=== PATIENT | male | born 1945 | race Caucasian/White ===

== ENCOUNTER 2018-11-01 12:03 | Emergency (ER) | payer MEDICARE ==
[~2018-11-01 12:03] MED LIST: ACE3 PO; ASPI-715 PO; ATR10 PO; CEP500 PO; DUT0.5 PO; FLOMAX; HYDR-3250 PO; KET10 PO; LOR5/325 PO; NAPR-1043 PO; ONDA-153 SL; ONDA4TAB PO; ONDA8TAB94 PO; PRO25 PO; TRILI135PT PO
[2018-11-01 12:22] VITALS: BP 134/79
[2018-11-01] MEDS ORDERED: TAMS0.4C70 PO (12:27)
[2018-11-01] MEDS ORDERED: ATOR20TA22 PO (12:27)
[2018-11-01] MEDS ORDERED: FINA5TAB67 PO (12:27)
[2018-11-01] MEDS ORDERED: APIX5TAB PO (12:27)
[2018-11-01] MEDS ORDERED: METO25TA23 PO (12:29)
[2018-11-01] MEDS ORDERED: DIPHTH/TETANUS/ACEL. PERTUSSIS IM ONLY ONE (12:35)
--- NOTE | 2018-11-01 12:35 | ER Report ---
History and Physical Time Seen By MD: 12:30 Hx. of Stated Complaint: Laceration to left palm from piece of wood HPI/ROS CHIEF COMPLAINT: Laceration left hand HISTORY OF PRESENT ILLNESS: 73-year-old male patient presents to emergency room with complaint of laceration to left hand. Patient states that he was trying to break a stick with his knee. He states when he did that that the would is a broke splinted up his hand causing a to cut. He denies having any puncture injury of the would. He denies having numbness tingling. He states he is able to move his hand without any difficulties. He states his last tetanus shot was probably 7 years ago. Allergies: Coded Allergies: aspirin (Verified Allergy, Mild, HIVES, 11/01/18) oxycodone (Verified Allergy, Mild, 11/01/18) hydrocodone (Verified Allergy, Unknown, 11/01/18) Home Meds Active Scripts Cephalexin 500 Mg Tab (KEFLEX 500 MG TAB) 500 Mg Tablet, 500 MG PO Q6H, #20 TAB Prov:NATE FIGUEROA ROOM SERVICE WAITER/WAITRESS 11/01/18 Reported Medications Metoprolol Succinate (METOPROLOL SUCCINATE) 25 Mg Tab.er.24h, 0.5 TAB PO BID, TAB 11/01/18 Tamsulosin Hcl (TAMSULOSIN HCL) 0.4 Mg Cap.er.24h, 0.4 MG PO QDAY, CAP 11/01/18 Finasteride (FINASTERIDE) 5 Mg Tablet, 5 MG PO QDAY 11/01/18 Apixaban (ELIQUIS) 5 Mg Tablet, 5 MG PO DAILY 11/01/18 Atorvastatin Calcium (LIPITOR) 20 Mg Tablet, 1 TAB PO QDAY, TAB 11/01/18 Atorvastatin (Lipitor) 10 Mg Tab, 10 MG PO QHS, 0 Refills 07/16/11 Discontinued Reported Medications Dutasteride (Avodart) 0.5 Mg Cap, 0.5 MG PO QDAY, 0 Refills 07/16/11 Aspirin (Aspirin) 81 Mg Tablet.dr, 81 MG PO DAILY, 0 Refills 07/16/11 Fenofibric Acid (Trilipix) 135 Mg Capsule.dr, 135 MG PO DAILY, 0 Refills 07/16/11 Past Medical/Surgical History Patient has a past medical history of TIA, hyperlipidemia, hernia, knee replacement, arthritis, fractures, back pain, A. fib. Patient has surgical history of hiatal hernia repair, anterior cruciate ligament repair, bilateral ankle surgery, left total knee surgery, inguinal hernia repair, pacemaker placed. Reviewed Nurses Notes: Yes Hx Smoking: No Hx Substance Use Disorder: No Hx Alcohol Use: No Constitutional Vital Sign - Last 24 Hours 11/01/18 11/01/18 12:22 13:41 Temp 97.7 Pulse 85 80 Resp 16 B/P (MAP) 134/79 Pulse Ox 91 O2 Delivery Room Air Physical Exam General appearance: Alert no distress. Respiratory: Chest is non tender, lungs are clear to auscultation. Cardiac: Regular rate and rhythm. Skin: Patient does have a 2cm laceration to the palmar aspect of the webbing between the first and second fingers. No active bleeding noted at this time. DIFFERENTIAL DIAGNOSIS: After history and physical exam differential diagnosis was considered for laceration Medical Decision Making ED Course/Re-evaluation ED Course Patient was admitted to exam room, history and physical were obtained. Differential diagnoses were considered. On examination lungs are clear, heart is regular. Patient does have a 2 cm laceration to the webbing between the first and second finger on the left hand. Does not go very deep but does gape open. The wound was anesthetized, cleaned and repaired described below. Patient tolerated procedure well. Patient was given instructions keep wound dry for 48 hours, he is to follow-up in 7-10 days have sutures removed. We did discuss that he would follow-up with [facility] urgent care and I removed the sutures on the . He is to take Tylenol ibuprofen as needed for pain. Patient did have a tetanus shot 7 years ago and that was updated today. Patient verbalized understanding and agreement with plan. Procedure: Laceration repair. Verbal consent was obtained from the patient. The 2 cm laceration on the left hand between the first and second fingers was anesthetized in the usual fashion. The wound was scrubbed, draped and explored to its base with a gloved finger. There were no deep structures involved. No tendon injury was identified. The wound was repaired with 6 simple interrupted sutures using 5-0 nylon material. The wound repair was simple. The procedure was performed by myself. Decision to Disposition Date: Nov 01, 2018 Decision to Disposition Time: 13:30 Depart Departure Latest Vital Signs Vital Signs Date Time Temp Pulse Resp B/P (MAP) Pulse Ox O2 Delivery O2 Flow Rate FiO2 11/01/18 13:41 80 11/01/18 12:22 97.7 16 134/79 91 Room Air Impression: Primary Impression: Hand laceration Condition: Improved Disposition: HOME OR SELF-CARE New Scripts Cephalexin 500 Mg Tab (KEFLEX 500 MG TAB) 500 Mg Tablet 500 MG PO Q6H, #20 TAB Prov: NATE FIGUEROA 11/01/18 Patient Instructions: Laceration (ED) Additional Instructions: Keep wound dry for 48 hours. Follow up with your primary care provider ([facility], Nov 09) in the next 7-10 days to have sutures removed. Monitor for signs of infection; redness, swelling, heat, discharge, increasing pain or red streaking. Take Tylenol or Ibuprofen as needed for pain. Return to the ER with any concerns. You may change dressing as needed. Problem Qualifiers Primary Impression: Hand laceration Encounter type: initial encounter Foreign body presence: without foreign body Laterality: left Qualified Codes: S61.412A - Laceration without foreign body of left hand, initial encounter NATE FIGUEROA Nov 01, 2018 12:35
[2018-11-01] MEDS ORDERED: CEPH500T7 PO (13:32)
== END 2018-11-01 13:41 | disposition home or self-care (01) ==
LOC: ER 12:58
DX: S61.412A Laceration without foreign body of left hand, initial encounter (principal)
CPT/HCPCS: 90471; 90715; 99283

== ENCOUNTER → 2019-01-04 | Outpatient (CLI) | payer MEDICARE ==
[~2019-01-04] MED LIST changes: +APIX5TAB PO; +ATOR20TA22 PO; +CEPH500T7 PO; +FINA5TAB67 PO; +IOPAMIDOL 76% 150 ML INFUS BTL 150 ML ONE; +METO25TA23 PO; +NS(*) 0.9% 50 ML BAG 50 ML ONE; +TAMS0.4C70 PO
--- NOTE | 2019-01-04 11:30 | RADIOLOGY IMAGING REPORT ---
FACILITY: [facility] PATIENT NAME: Chapo Haas : 1945 MR: [id number] V: [id number] EXAM DATE: ORDERING PHYSICIAN: ODRCAS RODRIGUES TECHNOLOGIST: Location: [facility] - [place] Patient: Chapo Haas : 1945 Visit/Account:[id number] Date of Sevice: 01/04/2019 CT ABDOMEN PELVIS W & W/O CONTRAST HISTORY: History of bladder cancer, follow-up TECHNIQUE: Axial images acquired through the abdomen/pelvis both with and without IV contrast.. Angus nal and sagittal reformatting also performed.Dose Lowering Technique One of the following dose optimization techniques was utilized in the performance of this exam: Autom ated exposure control; adjustment of the mA and/or kV according to the patient's size; or use of an i terative reconstruction technique. Specific details can be referenced in the facility's radiology C T exam operational policy. CONTRAST: 125 mL [id number] COMPARISON: November 12, 2012 FINDINGS: Visualized lung bases: There is increasing patchy airspace consolidation in the lung bases, left gre ater than right which may represent progressive scarring or atelectasis. Incompletely imaged are cor onary artery calcifications.. Pacemaker leads are identified in the right atrium and right ventricle Hepatobiliary: Previous seen noted small hyperattenuating lesion posterior aspect dome of the liver appears unchanged measuring approximately 1.5 cm in diameter. There is a 1.5 cm coarse calcification in the superior caudate lobe the liver that appears unchanged. Spleen: Negative. Adrenals: Negative. Pancreas: Negative. Kidneys ureters and bladder: Upper pole right renal cyst has increased in size from 4.9 cm to 5.9 cm. There is a new left upper pole renal cyst measuring 1.6 cm additional subcentimeter hypodensities i n the kidneys are too small to characterize although likely represent additional cysts . There are nonobstructing tiny calculi in both renal collecting systems. There is irregular thickening of the anterior and superior wall of the bladder. There is very mild i rregular thickening of the posterior wall the bladder is well Genitalia: Negative. GI: There is colonic diverticulosis although no CT evidence of acute diverticulitis Vessels/spaces/nodes: Is a tiny 4 mm soft tissue nodule just lateral to the right-sided the bladder dome which could represent a small lymph node Bones/soft tissues: There is a small ventral hernia in the midline of the upper abdomen containing f at. This projects just superior to a prior ventral hernia repair with mesh. Also just below the her sasha repair is an additional small ventral hernia containing fat. There is laxity of the rectus sheat h at the site of the hernia repair with outward pouching of the anterior abdominal wall with adjacent loop of small bowel. Severe compression fracture of L3 again seen. There is a slight moth-eaten appearance to the L3 ve rtebral body raising the question of possible pathologic fracture. Spondylotic changes throughout th e thoracolumbar spine are again seen . There is a lobular area of fat just anterior and superior to the bladder dome may represent fat necro sis Additional findings: None pertinent. IMPRESSION: There is increasing patchy airspace consolidation in the lung bases, left greater than right which ma y represent progressive scarring or atelectasis. Nonobstructing nephrolithiasis bilaterally. There is new irregular thickening of the anterior superior wall the bladder. Given the clinical hist ory of prior bladder cancer cystoscopy is recommended to exclude a new malignancy. Period there is a new 4 mm soft tissue nodule just lateral to the right-sided the bladder dome could represent a tiny lymph node. A post surgical changes from prior ventral hernia repair with mesh. There is laxity of the rectus sh eath at the site of the hernia repair with outward pouching of the anterior abdominal wall with adjac ent loop of small bowel. There are mall ventral hernias both superior and inferior to the prior hernia repair containing fat. Bilateral inguinal hernias containing fatSevere compression fracture of L3 vertebral body is again se en. This a slightly moth-eaten appearance to this vertebral body raising the question of a possible pathologic fracture. Additional chronic findings as described Report Dictated By: Helga Maldonado MD at 01/04/2019 10:49 AM Report E-Signed By: Helga Maldonado MD at 01/04/2019 11:25 AM WSN:[id number]
== END ==
LOC: CT 00:43
PROVIDERS: ATTEND Nurse Practitioner Family
DX: N20.0 Calculus of kidney (principal)
CPT/HCPCS: 74178; J7050; Q9967